=== PATIENT | male | born 1955 | race African-American/Black ===

== ENCOUNTER → 2017-07-16 | Outpatient (CLI) | payer BC ==
--- NOTE | 2017-07-16 15:08 | PCVCIMAG ---
APPROVED REPORT Exam: Stress Echocardiogram Indication: A-Flutter, Tobacco use Patient Location: Echo lab Stress Nurse: Alessandra Dennis RN Status: routine Ht: 5 ft 11 in HR: 74 bpm BP: 130/80 mmHg Rhythm: NSR Procedure The patient underwent an Exercise Stress Test using the Lucius Protocol. Blood pressure, heart rate, and EKG were monitored. An Echocardiogram was performed by earth moving technician in four stages in quad fashion. At peak stress, four selected images were obtained and placed side by side with resting images for comparison. Stress Test Details Stress Test: Exercise stress testing was performed using a Lucius protocol. HR Resting HR: 74 bpmMax Heart Rate (APMHR): 158 bpm Max HR Achieved: 141 bpmTarget HR (85% APMHR): 134 bpm % of APMHR: 89 Recovery HR: 86 bpm HR response to stress: Normal HR response to stress BP Resting BP: 130/80 mmHg Max BP: 200/82 mmHg Recovery BP: 144/69 mmHg ECG Resting ECG: Sinus Rhythm Stress ECG: Sinus Rhythm ST Change: Normal Arrhythmia: None Recovery ECG: Sinus Rhythm Recovery ST Change: Normal Recovery Arrhythmia: None Clinical Reason for Termination: Maximal effort Stress Symptoms: Dyspnea Exercise duration: 8 min 8 sec Highest Stage Achieved: Stage 3: 3.4 mph at 14% grade. Exercise capacity: 10.1 METs Overall Exercise Capacity for Age: Normal Stress ECG Conclusion 1. subjectively negative for ischemia 2. electrocardiographically negative for ischemia Pre-Stress Echo The resting Echocardiogram showed normal left ventricular contractility with an estimated Ejection Fraction of about >55%. Normal wall motion in all segments on baseline images. Post-Stress Echo The stress Echocardiogram showed normal left ventricular contractility with an estimated Ejection Fraction of about 65%. Normal augmentation of wall motion in all segments on post stress images. Clinical No clinical or ECG evidence for ischemia. Conclusion Clinical Response: Non-ischemic Exercise Capacity: Average Stress ECG Response: Non-ischemic Stress Echo Images: Non-ischemic The left ventricle is normal in size with mild concentric left ventricular hypertrophy. 1. LOW RISK STUDY Other Information Study Quality: Adequate <Conclusion> The left ventricle is normal in size with mild concentric left ventricular hypertrophy. 1. LOW RISK STUDY
== END | disposition home or self-care (01) ==
LOC: PCVCIMAG 13:57
PROVIDERS: ATTEND Internal Medicine
DX: I51.7 Cardiomegaly (principal); I48.92 Unspecified atrial flutter; Z72.0 Tobacco use
CPT/HCPCS: 93325; 93351